=== PATIENT | female | born 1990 | race Caucasian/White ===

== ENCOUNTER 2023-10-05 09:18 | Emergency (ER) | payer BC, MEDICAID ==
[2023-10-05 09:43] VITALS: O2SAT 100
[2023-10-05 09:45] LABS: BASOPHILS % (AUTO) 0.2 %; EOSINOPHILS % (AUTO) 0.1 %; HGB - HEMOGLOBIN 13.4 g/dL (12.0-16.0); LYMPHOCYTES # (AUTO) 1.8 10^3/uL (1.5-3.5); LYMPHOCYTES % (AUTO) 12.8 %; MEAN CORPUSCULAR HEMOGLOBIN 29.3 pg (27.0-31.0); MEAN CORPUSCULAR HGB CONC 32.7 g/dL (32.0-36.0); MEAN CORPUSCULAR VOLUME 89.7 fL (81.0-99.0); MEAN PLATELET VOLUME 9.9 fL (7.9-10.8); MONOCYTES # (AUTO) 0.8 10^3/uL (0.0-1.0); MONOCYTES % (AUTO) 5.9 %; NEUTROPHILS # (AUTO) 11.2 10^3/uL (1.5-6.6); NEUTROPHILS % (AUTO) 80.7 %; PLT - PLATELET COUNT 316 10^3/uL (130-450); RED BLOOD COUNT 4.57 10^6/uL (4.20-5.40); RED CELL DISTRIBUTION WIDTH 12.8 % (12.0-15.0); WHITE BLOOD COUNT 13.8 x10^3/uL (4.8-10.8)
[2023-10-05 09:59] LABS: ALBUMIN 4.8 g/dL (3.2-5.5); ALBUMIN/GLOBULIN RATIO 1.9 (1.0-2.2); BILIRUBIN,TOTAL 0.5 mg/dL (0.2-1.0); CALCIUM 9.4 mg/dL (8.5-10.3); CREATININE 0.7 mg/dL (0.6-1.3); POTASSIUM 3.7 mmol/L (3.5-4.5); TOTAL PROTEIN 7.3 g/dL (6.4-8.9)
[2023-10-05 11:51] LABS: GLUCOSE, URINE (UA) NEGATIVE (NEGATIVE); KETONES,URINE (UA) 15 mg/dL (NEGATIVE); LEUKOCYTE ESTERASE, URINE NEGATIVE (NEGATIVE); NITRITE,URINE NEGATIVE (NEGATIVE); OCCULT BLOOD,URINE MODERATE (NEGATIVE); PROTEIN,URINE 30 mg/dL (NEGATIVE); UROBILINOGEN,URINE 0.2 (NORMAL) E.U./dL (NORMAL)
[2023-10-05 12:13] LABS: BILIRUBIN,URINE NEGATIVE (NEGATIVE); CLARITY,URINE SL. CLOUDY (CLEAR); ICTOTEST,URINE NEGATIVE
[2023-10-05 12:14] LABS: HCG UR QUAL NEGATIVE
[2023-10-05 12:16] LABS: AMORPHOUS SEDIMENT,UR Few /LPF; BACTERIA,URINE Many /HPF (None Seen); MUCUS,URINE Moderate Strands; RBC,URINE 0-5 /HPF (0-5); SQUAMOUS EPITHELIAL CELL,UR FEW Squamous (<= Few)
--- NOTE | 2023-10-05 12:34 | ED Physician Documentation ---
History of Present Illness - Stated complaint Stated Complaint: VOMITING - Chief complaint Chief Complaint: Abd Pain - History obtained from History obtained from: Patient - Additonal information Additional information: This is a 33-year-old female who reports a past medical history of occasional migraine headaches as well as prior bouts of nausea and vomiting. 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 It sounds as though she was told that it may be related to cyclic vomiting but she is never had a formal diagnosis. She has not seen GI in the past. She presents today with a bout of nausea and vomiting. Symptoms started yesterday, started with a "hot flash" and feeling very flushed, she went outside tried to get fresh air tried to alleviate her symptoms but then became very anxious started retching uncontrollably. She had not eaten anything as he was not really anything in her stomach to vomit but she persistently retch. She felt nauseous and felt very anxious. She tried different things to get her symptoms to go away but they did not. She was able to eat last evening but still felt somewhat distressed today this came in. She actually is feeling quite a bit better now and feels like she can eat and drink. She does have some accompanying abdominal cramping when the symptoms happen but currently does not have any abdominal pain. She has no fever or chills, no diarrhea or constipation, no urinary symptoms. She states symptoms typically are more prevalent or more often occur in the premenstrual period. She does smoke marijuana though states she feels like it does help her anxiety and typically helps her symptoms rather than exacerbates it. She has gone for long periods of time without smoking marijuana and still had episodes. She used to get episodes much more frequently than she does now and this is the first 1 in the last several months but prior to that she would have an episode every month or every few months. Review of Systems Constitutional: reports: Reviewed and negative Nose: reports: Reviewed and negative Throat: reports: Reviewed and negative Cardiac: reports: Reviewed and negative Respiratory: reports: Reviewed and negative GI: reports: Nausea, Vomiting. denies: Abdominal Pain, Abdominal Swelling, Constipation, Diarrhea : reports: Reviewed and negative Skin: reports: Reviewed and negative Neurologic: reports: Reviewed and negative PD PAST MEDICAL HISTORY - Past Medical History Past Medical History: Yes GI: Other (Cyclic vomiting) Psych: Panic attacks - Present Medications Home Medications: Ambulatory Orders Medication Instructions Recorded Confirmed Ondansetron Odt [Zofran] 4 mg TL Q6H PRN #12 tablet 10/05/23 Promethazine HCl [Promethazine HCl 25 mg RC Q12H PRN #10 supp.rect 10/05/23 supp] clonazePAM [Clonazepam] 1 mg PO Q12H PRN #6 tab 10/05/23 - Allergies Allergies/Adverse Reactions: Allergies Allergy/AdvReac Type Severity Reaction Status Date / Time No Known Drug Allergies Allergy Verified 10/05/23 09:29 - Social History Does the pt smoke?: No Smoking Status: Never smoker PD ED PE NORMAL - Vitals Vital signs reviewed: Yes - General General: Alert and oriented X 3, No acute distress, Well developed/nourished - HEENT HEENT: Atraumatic, Moist mucous membranes - Cardiac Cardiac: RRR, No murmur - Respiratory Respiratory: No respiratory distress, Clear bilaterally - Abdomen Abdomen: Normal bowel sounds, Soft, Non tender, Non distended - Derm Derm: Normal color, Warm and dry, No rash - Neuro Neuro: Alert and oriented X 3 Eye Opening: Spontaneous Motor: Obeys Commands Verbal: Oriented GCS Score: 15 - Psych Psych: Normal mood, Other (Anxious affect) Results - Vitals Vitals: Vital Signs - 24 hr 10/05/23 09:22 Temperature 36.2 C L Heart Rate 55 L Respiratory 18 Rate Blood Pressure 147/84 H O2 Saturation 100 Oxygen O2 Source Room air - Labs Labs: Laboratory Tests 10/05/23 10/05/23 10/05/23 09:41 09:41 11:46 WBC 13.8 H RBC 4.57 Hgb 13.4 Hct 41.0 MCV 89.7 MCH 29.3 MCHC 32.7 RDW 12.8 Plt Count 316 MPV 9.9 Neut # (Auto) 11.2 H Lymph # (Auto) 1.8 Drew # (Auto) 0.8 Eos # (Auto) 0.0 Baso # (Auto) 0.0 Absolute Nucleated RBC 0.00 Nucleated RBC % 0.0 Sodium 137 Potassium 3.7 Chloride 103 Carbon Dioxide 25 Anion Gap 9.0 BUN 15 Creatinine 0.7 Estimated GFR (MDRD) 95 Glucose 116 H Calcium 9.4 Total Bilirubin 0.5 AST 16 ALT 15 Alkaline Phosphatase 37 L Total Protein 7.3 Albumin 4.8 Globulin 2.5 Albumin/Globulin Ratio 1.9 Lipase 41 Urine Color DARK YELLOW Urine Clarity SL. CLOUDY Urine pH 6.0 Ur Specific [place] 1.025 Urine Protein 30 H Urine Glucose (UA) NEGATIVE Urine Ketones 15 H Urine Occult Blood MODERATE H Urine Nitrite NEGATIVE Urine Bilirubin NEGATIVE Urine Urobilinogen 0.2 (NORMAL) Ur Leukocyte Esterase NEGATIVE Urine RBC 0-5 Urine WBC 6-10 H Ur Squamous Epith Cells FEW Squamous Amorphous Sediment Few Urine Bacteria Many H Urine Mucus Moderate Strands Ur Microscopic Review INDICATED Urine Culture Comments NOT INDICATED Urine HCG, Qual NEGATIVE PD Medical Decision Making - ED course Complexity details: reviewed results, re-evaluated patient, considered differential, d/w patient ED course: 33-year-old female presented with nausea and vomiting as described in HPI. She has had multiple similar episodes in the past and she is actually feeling better at the time of exam with her symptoms nearly completely resolved without inte rvention. Her history is suspicious for cyclic vomiting syndrome, potentially cannabinoid hyperemesis, and this also may be related to patient's panic attacks. I had a lengthy discussion with patient on potential treatment including management of panic, avoiding cannabinol products, and I will give her a couple different options for nausea medication including sublingual Zofran, rectal promethazine and, only if absolutely necessary, sublingual clonazepam to help with her panic. She was vies to take at the onset of symptoms to try to avoid progression into her cyclic vomiting. Patient was encouraged to continue follow-up with her PCP however to see if any additional potential causes of her symptoms and potentially refer to GI as an outpatient. There is certainly no sign of acute surgical abdomen at this time, no peritoneal signs, and labs are stable aside from mildly elevated white blood cell count which is likely reactive from the vomiting. Patient feels like she can eat and drink now this IV fluids were not given and she is actually essentially symptom-free at this time. I discussed return precautions in detail with the patient and her friend. 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 I do recommend that you stop using marijuana products for at least 90 days to see if they are contributing to your symptoms. Cyclic vomiting can occur for a number of other reasons however and may be related to your migraines, panic attacks, or other causes. I have given you to nausea medications to use as needed, 1 is dissolvable and 1 is rectal. I have also written a prescription for dissolvable anxiety medicine called Ativan. This can be habit-forming and should be used only if you feel you are starting a panic attack. Please follow-up with your primary doctor if this persist, they may recommend other medication for long-term management. Forms: PCP List
[2023-10-05 12:46] VITALS: BP 113/61
== END 2023-10-05 12:41 | disposition home or self-care (01) ==
LOC: ED 09:18
DX: R11.15 Cyclical vomiting syndrome unrelated to migraine (principal)
CPT/HCPCS: 36415; 80053; 81001; 81003; 81025; 83690; 85025; 87086; 99283; 99284